=== PATIENT | female | born 1975 | race Caucasian/White ===

== ENCOUNTER 2017-12-26 12:18 | Outpatient (CLI) | payer BC | END 2017-12-26 12:19 | disposition home or self-care (01) | LOC: BICRAD 12:18 | PROVIDERS: ATTEND Internal Medicine Rheumatology | DX: M46.87 Other specified inflammatory spondylopathies, lumbosacral region (principal); M47.896 Other spondylosis, lumbar region | CPT/HCPCS: 72100 ==

== ENCOUNTER 2018-01-17 17:15 | Emergency (ER) | payer BC ==
--- NOTE | 2018-01-17 17:54 | RAD ---
FRONTAL RADIOGRAPH CHEST: 01/17/18 COMPARISON: 08/13/16 HISTORY: Fever, chills, bodyaches, and nausea. FINDINGS: Lungs are clear. Heart and mediastinal contours are unremarkable. Osseous structures appear stable. IMPRESSION: No acute findings. POS: [facility]
[2018-01-17 18:04] LABS: #Lymphocytes 0.7 thou/uL (1.20-3.40); #Monocytes 0.7 thou/uL (0.11-0.59); #Neutrophils 9.8 thou/uL (1.40-6.50); %Basophils 0.4 % (0.0-1.0); %Eosinophils 0.4 % (0.0-10.0); %Lymphocytes 6.5 % (21.0-51.0); %Monocytes 6.3 % (0.0-10.0); %Neutrophils 86.4 % (42.0-75.0); Hemoglobin 12.4 g/dL (12.0-16.0); Mean Corpuscular Hemoglobin 27.9 pg (27.0-31.0); Mean Corpuscular Volume 84.4 fL (78.0-98.0); Mean Platelet Volume 8.4 fL (7.4-10.4); Platelet Count 299 thou/uL (130-400); RBC Distribution Width 16.2 % (11.5-14.5); Red Blood Cell (RBC) Count 4.47 mill/uL (4.20-5.40); White Blood Cell (WBC) Count 11.3 thou/uL (4.8-10.8)
[2018-01-17 18:24] LABS: ALT (SGPT) 14 U/L (8-55); AST (SGOT) 16 U/L (5-34); Albumin 4.6 g/dL (3.5-5.0); Alkaline Phosphatase 54 U/L (40-150); Anion Gap 14 mmol/L (10-20); BUN (Urea Nitrogen) 13 mg/dL (7.0-18.7); Bilirubin, Total 0.5 mg/dL (0.2-1.2); Calc. Creatinine Clearance 0 mL/min (70-130); Calcium 9.8 mg/dL (7.8-10.44); Carbon Dioxide 23 mmol/L (22-29); Chloride 103 mmol/L (98-107); Estimated GFR-MDRD 80; Globulin 4.2 g/dL (2.4-3.5); Glucose 103 mg/dL (70-105); Potassium 3.5 mmol/L (3.5-5.1); Protein, Total 8.8 g/dL (6.0-8.3); Sodium 136 mmol/L (136-145)
[2018-01-17 19:53] LABS: Bilirubin Negative (Negative); Blood, Urine Large (Negative); Glucose, Urine (Dipstick) Negative (Negative); Leukocyte Trace (Negative); Nitrite Negative (Negative); Protein, Urine (Dipstick) 100 mg/dL (Neg-Trace); Specific Gravity, Urine 1.015 (1.005-1.030); Urobilinogen 0.2 mg/dL (0.2-1.0)
[2018-01-17 19:55] LABS: Clarity Cloudy (Clear)
[2018-01-17 19:57] LABS: RBC/HPF GREATER THAN 50-TNTC HPF (0-3); WBC/HPF 0-3 HPF (0-3)
[2018-01-17 19:58] LABS: Bacteria/HPF Rare-Few HPF (None Seen); Hyaline Casts/LPF NONE SEEN LPF (0-3 Hyaline)
== END 2018-01-17 20:19 | disposition home or self-care (01) ==
LOC: ERS 17:15
DX: B34.9 Viral infection, unspecified (principal); I10 Essential (primary) hypertension; M19.90 Unspecified osteoarthritis, unspecified site; Z79.891 Long term (current) use of opiate analgesic; Z79.899 Other long term (current) drug therapy
CPT/HCPCS: 36415; 71045; 80053; 81003; 81015; 85025; 87040; 87804; 93005

== ENCOUNTER 2018-01-19 13:08 | Emergency (ER) | payer BC ==
[2018-01-19] MEDS ORDERED: Ibuprofen 800 MG TAB ONE (13:15)
[2018-01-19 14:22] LABS: #Lymphocytes 0.8 thou/uL (1.20-3.40); #Monocytes 0.9 thou/uL (0.11-0.59); #Neutrophils 8.8 thou/uL (1.40-6.50); %Basophils 0.3 % (0.0-1.0); %Eosinophils 0.1 % (0.0-10.0); %Lymphocytes 7.2 % (21.0-51.0); %Monocytes 8.4 % (0.0-10.0); Hemoglobin 12.2 g/dL (12.0-16.0); Mean Corpuscular HGB CONC 32.2 g/dL (32.0-36.0); Mean Corpuscular Hemoglobin 27.1 pg (27.0-31.0); Mean Platelet Volume 8.5 fL (7.4-10.4); Platelet Count 289 thou/uL (130-400); RBC Distribution Width 16.2 % (11.5-14.5); Red Blood Cell (RBC) Count 4.51 mill/uL (4.20-5.40); White Blood Cell (WBC) Count 10.5 thou/uL (4.8-10.8)
[2018-01-19 14:25] LABS: Lactate 1.81 mmol/L (0.50-2.20)
--- NOTE | 2018-01-19 14:28 | RAD ---
UPRIGHT PORTABLE CHEST ONE VIEW: History: 43-year-old female with history of sepsis, upper respiratory infection, shortness of breath, febrile. Comparison: 01-17-18 FINDINGS: Heart size is within normal limits. The lungs are clear. No pneumonia, edema, or pleural effusion. IMPRESSION: No significant acute intrathoracic disease. POS: [facility]
[2018-01-19 14:54] LABS: Bilirubin Negative (Negative); Blood, Urine Large (Negative); Clarity CLEAR (Clear); Glucose, Urine (Dipstick) Negative (Negative); Leukocyte Trace (Negative); Nitrite Negative (Negative); Protein, Urine (Dipstick) 30 mg/dL (Neg-Trace); Specific Gravity, Urine 1.009 (1.002-1.036)
[2018-01-19 14:55] LABS: ALT (SGPT) 12 U/L (8-55); AST (SGOT) 13 U/L (5-34); Albumin 4.2 g/dL (3.5-5.0); Alkaline Phosphatase 60 U/L (40-150); Anion Gap 15 mmol/L (10-20); BUN (Urea Nitrogen) 11 mg/dL (7.0-18.7); Bilirubin, Total 0.6 mg/dL (0.2-1.2); Calc. Creatinine Clearance 0 mL/min (70-130); Calcium 9.5 mg/dL (7.8-10.44); Carbon Dioxide 19 mmol/L (22-29); Chloride 102 mmol/L (98-107); Estimated GFR-MDRD Greater than 90; Globulin 4.1 g/dL (2.4-3.5); Glucose 125 mg/dL (70-105); Potassium 3.2 mmol/L (3.5-5.1); Protein, Total 8.3 g/dL (6.0-8.3); Sodium 133 mmol/L (136-145)
[2018-01-19 14:56] LABS: Bacteria/HPF Rare-Few HPF (None Seen); Hyaline Casts/LPF 0-3 HYALINE CAST LPF (0-3 Hyaline); Pathc Cast-AUWi Flag 0.14 (0-2.49); RBC/HPF GREATER THAN 50-TNTC HPF (0-3); Squamous Epithelial 0-3 HPF (0-3)
[2018-01-19] MEDS ORDERED: Potassium Chloride 20 MEQ TAB ONE (15:31)
== END 2018-01-19 16:01 | disposition home or self-care (01) ==
LOC: ERS 13:08
DX: J10.1 Influenza due to other identified influenza virus with other respiratory manifestations (principal); M06.9 Rheumatoid arthritis, unspecified; Z79.899 Other long term (current) drug therapy
CPT/HCPCS: 36415; 71045; 80053; 81003; 81015; 83605; 85025; 87040; 87804; 93005; 96360

== ENCOUNTER 2018-08-23 11:03 | Emergency (ER) | payer BC ==
--- NOTE | 2018-08-23 11:37 | RAD ---
EXAM: Chest Two Views 08/23/2018 11:34 AM HISTORY: Dyspnea COMPARISON: January 19, 2018 FINDINGS: Heart: Normal in size and contour. Pulmonary vessels: Normal. Costophrenic angles: Clear. Lungs: No confluent pneumonia, overt edema, pleural effusion, or other acute process. Pneumothorax: None. Osseous structures:Intact. Additional findings: None. IMPRESSION: No significant acute intrathoracic disease.
[2018-08-23 11:39] LABS: #Lymphocytes 0.5 thou/uL (1.20-3.40); #Monocytes 0.9 thou/uL (0.11-0.59); #Neutrophils 11.4 thou/uL (1.40-6.50); %Basophils 0.1 % (0.0-1.0); %Eosinophils 0.2 % (0.0-10.0); %Lymphocytes 3.9 % (21.0-51.0); %Monocytes 7.1 % (0.0-10.0); %Neutrophils 88.7 % (42.0-75.0); Mean Corpuscular HGB CONC 32.6 g/dL (32.0-36.0); Mean Corpuscular Hemoglobin 28.9 pg (27.0-31.0); Mean Corpuscular Volume 88.6 fL (78.0-98.0); Mean Platelet Volume 9.2 fL (7.4-10.4); Platelet Count 225 thou/uL (130-400); RBC Distribution Width 19.6 % (11.5-14.5); Red Blood Cell (RBC) Count 4.15 mill/uL (4.20-5.40); White Blood Cell (WBC) Count 12.9 thou/uL (4.8-10.8)
[2018-08-23 11:58] LABS: ALT (SGPT) 11 U/L (8-55); AST (SGOT) 12 U/L (5-34); Albumin 4.3 g/dL (3.5-5.0); Alkaline Phosphatase 33 U/L (40-150); Anion Gap 13 mmol/L (10-20); BUN (Urea Nitrogen) 12 mg/dL (7.0-18.7); Bilirubin, Total 0.9 mg/dL (0.2-1.2); CK (CPK) 34 U/L (29-168); Calc. Creatinine Clearance 0 mL/min (70-130); Calcium 9.3 mg/dL (7.8-10.44); Carbon Dioxide 21 mmol/L (22-29); Chloride 103 mmol/L (98-107); Estimated GFR-MDRD Greater than 90; Glucose 105 mg/dL (70-105); Potassium 3.6 mmol/L (3.5-5.1); Protein, Total 7.3 g/dL (6.0-8.3); Sodium 133 mmol/L (136-145)
[2018-08-23] MEDS ORDERED: Ondansetron ODT 8 MG TAB ONE (12:04)
[2018-08-23] MEDS ORDERED: HYDROcodone/Acetaminophen 5/325 mg Tablet ONE (12:04)
[2018-08-23 12:28] LABS: BHCG - Serum Negative (NEGATIVE); Pregs Control Background? CLEAR/WHITE (CLR/WHITE); Pregs Control Bar Appear? YES (CONTROL BAR)
== END 2018-08-23 13:17 | disposition home or self-care (01) ==
LOC: ERS 11:03
DX: M54.5 Low back pain (principal); M79.10 Myalgia, unspecified site; M06.9 Rheumatoid arthritis, unspecified; M19.90 Unspecified osteoarthritis, unspecified site; Z79.899 Other long term (current) drug therapy
CPT/HCPCS: 36415; 71046; 80053; 82550; 84484; 84703; 85025; 85379; 87804; 93005

== ENCOUNTER 2018-11-10 13:18 | Outpatient (CLI) | payer BC ==
--- NOTE | 2018-11-10 14:00 | RAD ---
PA AND LATERAL VIEWS CHEST: 11/10/18 HISTORY: Rheumatoid arthritis. FINDINGS: Comparison made with the exam of 08/23/18. The heart size is normal. The lungs are well expanded without focal areas of consolidation, pneumotho races, basilia pulmonary edema or pleural effusions. Bony structures are stable. IMPRESSION: Stable exam. No radiographic evidence of acute cardiopulmonary process. POS: OFF
== END 2018-11-10 13:19 | disposition home or self-care (01) ==
LOC: BICRAD 13:18
PROVIDERS: ATTEND Internal Medicine Rheumatology
DX: M06.9 Rheumatoid arthritis, unspecified (principal)
CPT/HCPCS: 71046

== ENCOUNTER 2022-02-23 03:25 | Emergency (ER) | payer BC, SELFPAY ==
[2022-02-23] MEDS ORDERED: Dicyclomine 20 MG/2 ML VIAL ONE (04:06)
[2022-02-23] MEDS ORDERED: Ondansetron PF 4 MG/2 ML Vial ONE (04:06)
[2022-02-23 04:34] LABS: #Eosinphils 0.1 thou/uL (0.0-0.7); #Lymphocytes 0.6 thou/uL (1.20-3.40); #Monocytes 0.3 thou/uL (0.11-0.59); #Neutrophils 10.1 thou/uL (1.40-6.50); %Basophils 0.2 % (0.0-1.0); %Eosinophils 0.5 % (0.0-10.0); %Neutrophils 91.3 % (42.0-75.0); Hemoglobin 9.8 g/dL (12.0-16.0); Mean Corpuscular HGB CONC 30.5 g/dL (32.0-36.0); Mean Corpuscular Hemoglobin 25.1 pg (27.0-31.0); Mean Corpuscular Volume 82.4 fl (78.0-98.0); Mean Platelet Volume 8.8 fL (7.4-10.4); Platelet Count 344 10x3/uL (130-400); RBC Distribution Width 17.2 % (11.5-14.5); Red Blood Cell (RBC) Count 3.92 mill/uL (4.20-5.40); White Blood Cell (WBC) Count 11.1 10x3/uL (4.8-10.8)
[2022-02-23 04:57] LABS: ALT (SGPT) 9 U/L (8-55); AST (SGOT) 13 U/L (5-34); Albumin 3.9 g/dL (3.5-5.0); Alkaline Phosphatase 62 U/L (40-110); Anion Gap 12 mmol/L (10-20); BUN (Urea Nitrogen) 12 mg/dL (7.0-18.7); Bilirubin, Total 0.8 mg/dL (0.2-1.2); Calc. Creatinine Clearance 0 mL/min (70-130); Calcium 8.8 mg/dL (7.8-10.44); Carbon Dioxide 20 mmol/L (22-29); Chloride 105 mmol/L (98-107); Estimated GFR 115; Globulin 3.8 g/dL (2.4-3.5); Glucose 118 mg/dL (70-105); Lipase 26 U/L (8-78); Potassium 3.7 mmol/L (3.5-5.1); Protein, Total 7.7 g/dL (6.0-8.3); Sodium 133 mmol/L (136-145)
== END 2022-02-23 06:19 | disposition home or self-care (01) ==
LOC: ERS 03:25
DX: B34.9 Viral infection, unspecified (principal)
CPT/HCPCS: 80053; 83690; 85025; 93005; 96361; 96372; 96374; J2405

== ENCOUNTER 2023-04-21 21:13 | Observation (INO) | payer OTHER, SELFPAY ==
[2023-04-22] MEDS ORDERED: methylPREDNISolone Sod Succ/PF 125 MG/2 ML VIAL ONE (01:12)
[2023-04-22] MEDS ORDERED: Ondansetron PF 4 MG/2 ML Vial ONE (01:12)
[2023-04-22] MEDS ORDERED: Morphine 4 MG/ML VIAL ONE (01:12)
[2023-04-22 01:29] LABS: #Monocytes 0.5 thou/uL (0.11-0.59); #Neutrophils 15.4 thou/uL (1.40-6.50); %Basophils 0.1 % (0.0-1.0); %Eosinophils 0.1 % (0.0-10.0); %Lymphocytes 6.8 % (21.0-51.0); %Monocytes 2.9 % (0.0-10.0); %Neutrophils 89.6 % (42.0-75.0); Hematocrit 26.3 % (36.0-47.0); Hemoglobin 8.2 g/dL (12.0-16.0); Mean Corpuscular HGB CONC 31.2 g/dL (32.0-36.0); Mean Corpuscular Hemoglobin 23.2 pg (27.0-31.0); Mean Corpuscular Volume 74.5 fl (78.0-98.0); Mean Platelet Volume 9.1 fL (7.4-10.4); Platelet Count 511 10x3/uL (130-400); RBC Distribution Width 18.3 % (11.5-14.5); Red Blood Cell (RBC) Count 3.53 mill/uL (4.20-5.40); White Blood Cell (WBC) Count 17.1 10x3/uL (4.8-10.8)
[2023-04-22 02:03] LABS: Troponin I Less than 0.010 ng/mL (< 0.028)
[2023-04-22 02:12] LABS: Lipase 15 U/L (8-78); Magnesium 1.8 mg/dL (1.6-2.6)
[2023-04-22] MEDS ORDERED: Ondansetron ODT 4 MG TAB SL PRN (03:45)
[2023-04-22] MEDS ORDERED: Ondansetron PF 4 MG/2 ML Vial IVP PRN ×2 (03:45→03:57)
[2023-04-22] MEDS ORDERED: Lactated Ringer's 1,000 ML IV SCH (03:45)
[2023-04-22 03:52] VITALS: BMI 35.6
[2023-04-22] MEDS ORDERED: Acetaminophen 325 MG TAB PO PRN (03:57)
[2023-04-22] MEDS ORDERED: Enoxaparin 40 MG (0.4 mL) SYRINGE SC SCH (04:00)
[2023-04-22] MEDS ORDERED: Morphine 2 MG/ML VIAL SLOW IVP PRN (04:00)
[2023-04-22] MEDS ORDERED: Enoxaparin 40 MG (0.4 mL) SYRINGE ONE (04:10)
[2023-04-22] MEDS ORDERED: HYDROcodone/Acetaminophen 10/325 mg Tablet ONE ×2 (04:10→10:14)
[2023-04-22] MEDS: HYDROcodone/Acetaminophen 10/325 mg Tablet PO PRN ×4 (04:22→22:28)
[2023-04-22 06:48] LABS: Iron 14 ug/dL (50-170); Iron Binding Capacity, Total 329 mcg/dL (265-497)
[2023-04-22 07:18] LABS: Ferritin 53.28 ng/mL (10-291)
[2023-04-22] MEDS: methylPREDNISolone Sod Succ 40 MG VIAL IVP SCH ×3 (10:13→17:27)
[2023-04-22] MEDS ORDERED: methylPREDNISolone Sod Succ 40 MG VIAL ONE ×2 (11:35→17:21)
[2023-04-22 18:38] LABS: Bacteria/HPF None Seen HPF (None Seen); Bilirubin Negative (Negative); Blood, Urine Negative (Negative); CAUTI Indications for Culture Pelvic or flank pain; Clarity Clear (Clear); Glucose, Urine (Dipstick) Normal (Negative); Ketone, Urine 20 mg/dL (Negative); Leukocyte Negative Leu/uL (Negative); Nitrite Negative (Negative); Protein, Urine (Dipstick) 10 mg/dL (Neg-Trace); RBC/HPF 0-3 HPF (0-3); Specific Gravity, Urine 1.014 (1.002-1.036); Urobilinogen Normal mg/dL (Less than 2); WBC/HPF 0-3 HPF (0-3)
[2023-04-22 18:39] LABS: Urine Culture Reflex No No
[2023-04-23] MEDS: methylPREDNISolone Sod Succ 40 MG VIAL IVP SCH ×3 (00:02→11:51)
[2023-04-23 04:40] LABS: #Monocytes 0.3 thou/uL (0.11-0.59); #Neutrophils 13.6 thou/uL (1.40-6.50); %Basophils 0.1 % (0.0-1.0); %Lymphocytes 8.4 % (21.0-51.0); %Monocytes 2.2 % (0.0-10.0); %Neutrophils 88.7 % (42.0-75.0); Hematocrit 25.8 % (36.0-47.0); Hemoglobin 7.9 g/dL (12.0-16.0); Mean Corpuscular HGB CONC 30.6 g/dL (32.0-36.0); Mean Corpuscular Hemoglobin 23.4 pg (27.0-31.0); Mean Corpuscular Volume 76.6 fl (78.0-98.0); Mean Platelet Volume 9.6 fL (7.4-10.4); Platelet Count 509 10x3/uL (130-400); RBC Distribution Width 18.2 % (11.5-14.5); Red Blood Cell (RBC) Count 3.37 mill/uL (4.20-5.40); White Blood Cell (WBC) Count 15.4 10x3/uL (4.8-10.8)
[2023-04-23] MEDS: HYDROcodone/Acetaminophen 10/325 mg Tablet PO PRN ×2 (04:50→08:22)
[2023-04-23 05:09] LABS: Anion Gap 13 mmol/L (10-20); BUN (Urea Nitrogen) 15 mg/dL (7.0-18.7); Calc. Creatinine Clearance 177 mL/min (70-130); Calcium 9.1 mg/dL (7.8-10.44); Carbon Dioxide 24 mmol/L (22-29); Chloride 103 mmol/L (98-107); Estimated GFR 114; Glucose 142 mg/dL (70-105); Potassium 3.9 mmol/L (3.5-5.1); Sodium 136 mmol/L (136-145)
[2023-04-23] MEDS ORDERED: Enoxaparin 40 MG (0.4 mL) SYRINGE SC SCH (09:00)
[2023-04-23 09:05] VITALS: BP 158/94; TEMP 97.7
[2023-04-23] MEDS ORDERED: Hydroxychloroquine Sulfate 200 MG TAB PO SCH ×2 (10:00→21:00)
[2023-04-25] MEDS ORDERED: FLU VACC QS2023-24(6MOS UP)/PF 60 MCG/0.5 ML SYRINGE IM ONE (09:00)
== END 2023-04-23 12:08 | disposition home or self-care (01) ==
LOC: ERS 21:13 → ERHOLD 04-22 03:36 → T4-B 04-22 18:32
PROVIDERS: ADMIT Internal Medicine; ATTEND Hospitalist
DX: M06.9 Rheumatoid arthritis, unspecified (principal); M35.00 Sjogren syndrome, unspecified; M32.9 Systemic lupus erythematosus, unspecified; M19.90 Unspecified osteoarthritis, unspecified site; D72.829 Elevated white blood cell count, unspecified; D50.9 Iron deficiency anemia, unspecified; E66.9 Obesity, unspecified; Z68.35 Body mass index [BMI] 35.0-35.9, adult; Z90.89 Acquired absence of other organs; Z87.891 Personal history of nicotine dependence; Z79.899 Other long term (current) drug therapy
CPT/HCPCS: 36415; 71045; 80048; 82607; 82728; 83540; 83550; 83605; 83690; 83735; 83880; 84484; 85025; 86140; 93005; 96372; 96374; 96375; 96376; G0378; J1650; J2270; J2405; J2920; J2930; J7120